=== PATIENT | male | born 1965 | race Caucasian/White ===

== ENCOUNTER 2020-05-04 09:53 | Outpatient (REF) | payer OTHER, SELFPAY | END 2020-05-04 09:54 | disposition home or self-care (01) | LOC: HO.LAB 09:53 | PROVIDERS: Visit Provider Internal Medicine | DX: Z20.822 Contact with and (suspected) exposure to COVID-19 (principal) | CPT/HCPCS: 36415; C9803; U0003; U0005 ==

== ENCOUNTER 2022-10-22 20:15 | Emergency (ER) | payer OTHER, SELFPAY ==
[2022-10-22 20:34] VITALS: BP 146/89; PULSE 75; RESP 18; TEMP 36.7; O2SAT 97; BMI 25.8
--- NOTE | 2022-10-22 20:36 | ED.GENADULT ---
HPI - General Adult General Chief complaint: General Medical Stated complaint: Hemorrhoids? Time Seen by Provider: 10/22/22 22:45 Source: patient Mode of arrival: ambulatory Limitations: no limitations History of Present Illness HPI narrative: Patient history of hemorrhoids for last few days , getting painful taking stool softener no rectal bleed Related Data Previous Rx's Medication Instructions Recorded hydrocortisone 1 %-pramoxine 1 % 1 appl [place] BEDTIME PRN hemorrhoids 10/22/22 rectal foam (Proctofoam HC) #10 grams Allergies Allergy/AdvReac Type Severity Reaction Status Date / Time Penicillins Allergy Rash Verified 10/22/22 20:33 Review of Systems Review of Systems: Yes all other systems are reviewed and are negative [facility] Social History Social History Advance Directives: No Advance Directives Information Provided: Yes Physical Exam ED Vital Signs: Vital Signs - 24 hr 10/22/22 20:34 10/22/22 22:43 Temperature 98.0 F 97.8 F Pulse Rate 75 70 Respiratory Rate 18 19 Blood Pressure 146/89 H 137/95 H Pulse Oximetry 97 97 Oxygen Delivery Method Room Air Room Air BMI result Body Mass Index 25.8 Appearance: Alert. Oriented X3. No acute distress. Eyes: No pallor/icterus ENT: Pharynx normal. Oral Mucosa moist Neck: Normal inspection. Neck supple. CVS: Normal heart rate and rhythm. Pulses normal. Respiratory: No respiratory distress. Equal air entry bilateral, Abdomen: Soft and nontender. Bowel sounds are present, rectal: Small thrombosed hemorrhoid tender to touch Skin: Skin warm and dry. Normal skin color. Normal skin turgor. Course Course Course Narrative: RME - 57 yo Chadian speaking male presents to the ER for evaluation of rectal pain that started today. History of hemorrhoids but none in 2 years. Had 2 normal BMs today but is now having pain, swelling, irritation and itching, no bleeding. On stool softeners and has not been constipated. Plan: Exam in [facility] Medications Administered Discontinued Medications Generic Name Dose Route Start Last Admin Trade Name Freq PRN Reason Stop Dose Admin Lidocaine HCl 2 ml 10/22/22 23:07 10/22/22 23:13 Lidocaine Hcl 1 % Mpf 2 Ml Vial INFILTRATI 10/22/22 23:08 2 ml ONCE ONE Administration Medical Decision Making Medical Decision Making MDM Narrative: 2 cc of 1% lidocaine was used to inject hemorrhoid and Elliptical incision was made on the external hemorrhoids and blood clots were removed patient felt much better pain relieved Discharge Plan Discharge Clinical Impression: External hemorrhoid, thrombosed Patient Disposition: Home, Self-Care Instructions: Hemorrhoids (ED) Additional Instructions: Local care as advised Avoid straining/constipation Use suppository as prescribed Prescriptions: New Proctofoam HC 1-1 % foam 1 appl [place] BEDTIME PRN (Reason: hemorrhoids) Qty: 10 0RF Referrals: Leo Smith MD [Physician] - 2 weeks
[2022-10-22 22:43] VITALS: BP 137/95; PULSE 70; RESP 19; TEMP 36.6; O2SAT 97
[2022-10-22] MEDS: Lidocaine HCl 1 % MPF 2 ML VIAL INFILTRATI (23:13)
== END 2022-10-22 23:49 | disposition home or self-care (01) ==
PROVIDERS: Emergency Provider Internal Medicine; PCP Internal Medicine
DX: K64.4 Residual hemorrhoidal skin tags (principal)
CPT/HCPCS: 46083; 99283; 99284

== ENCOUNTER 2022-11-12 12:57 | Outpatient (AMB) | payer OTHER, SELFPAY ==
[2022-11-12 12:58] VITALS: BP 128/86; PULSE 87; BMI 25.5
--- NOTE | 2022-11-12 12:58 | MHC.OFFVIS ---
Intake Vital Signs 11/12/22 12:58 Height 5 ft 10 in Weight 178 lb BMI 25.5 BP 128/86 Blood Pressure Location Rt brachial Position Sitting Pulse 87 Intake Visit Reasons: hemorrhoids Intake Note: This patient presents for [facility] emergency department follow-up for hemorrhoids. Patient c/o; reports having 2 weeks of rectal draining, denies pain. Head Of Business Development Required: Yes Head Of Business Development Language: Website Designer Name: Christa-SHERIE Information Interpreted: non-clinical & clinical Accompanied by: Self / Same As Patient Allergies Penicillins Allergy (Verified 10/22/22 20:33) Rash Medication List - Last Reconciled 11/12/22 by Leo Smith MD beclomethasone dipropionate 40 mcg/actuation (Qvar RediHaler) 2 inhalations inhalation BID bupropion HCl 150 mg PO QAM desvenlafaxine succinate ER (Pristiq) 0 mg PO ezetimibe 10 mg PO DAILY hydrocortisone-pramoxine 1-1 % (Proctofoam HC) 1 appl [place] BEDTIME PRN ibuprofen 800 mg PO Q8H lidocaine 5% 0 patches topical meloxicam 15 mg PO DAILY mirtazapine 15 mg PO BEDTIME mometasone 0.1% 0 appl topical zolpidem 10 mg PO BEDTIME PRN HPI hemorrhoids HPI Details 57-year-old male referred for hemorrhoids. He says that he noticed a lump outside his anus about 2 weeks ago. He went to the emergency room at that time because this had some pain as well. He was started on Preparation H. He says that the lump has decreased in size significantly since that time. He still has some pain but this has improved as well. He denies any bleeding He denies any constipation. He does state that he had rubber banding for some hemorrhoids about 4 years ago in [place]. [facility] Medical History (Updated 11/12/22 @ 13:32 by Leo Smith MD) History of melanoma Surgical History (Updated 11/12/22 @ 13:09 by SHERIE Saba) History of surgery on arm Family History (Updated 11/12/22 @ 13:10 by SHERIE Saba) Mother Skin cancer Maternal Grandmother Stomach cancer Other Colon cancer Social History Alcohol intake: current Alcohol intake frequency: holidays/special occasions only Patient Tobacco Use Status: Never used Tobacco Review of Systems Const Denies chills and Denies fever(s) Card Denies chest pain, Denies dyspnea and Denies dyspnea on exertion Resp Denies cough, Denies dyspnea and Denies dyspnea on exertion GI Denies hematochezia and Denies change in bowel habits Denies hematuria and Denies difficulty urinating Musc Denies back pain and Denies limited range of motion Neuro Denies focal weakness and Denies convulsions Psych Reports anxiety, Reports depression and Denies mood swings Physical Exam Const General: comfortable and no acute distress Orientation/consciousness: patient oriented x3 Neck Neck: Yes no lymphadenopathy Resp Auscultation: clear to auscultation bilaterally Cardio Rhythm: regular rhythm GI Other: Rectal exam shows a small thrombosed external hemorrhoid, about 5 mm in size on the left. Anoscopy done Palpation (GI): Soft to palpation, nontender and no guarding Neuro General: patient oriented x3 Office Procedures Anoscopy He was in theodore-knife position. The anoscope was gently inserted. A full examination of the entire anal canal was done. He had small internal hemorrhoidal columns mix with some external hemorrhoids. There were no other lesions. There was no fissure. There was no induration or any bleeding. The thrombosed external hemorrhoid on the left was seen. [id number] Assessment & Plan Assessment & Plan (1) External hemorrhoid, thrombosed: Code(s): K64.5 - Perianal venous thrombosis Plan: He feels a lump outside his anus. This is a thrombosed external hemorrhoid. This has decreased in size since onset 2 weeks ago. His pain has improved as well I explained to him that at this time, it does not require any surgical intervention. I did explain to him a ever that if this continues to bother him the line, then he may benefit from hemorrhoidectomy for this external hemorrhoid. He is comfortable with the above explanation. Coding Level of Care Code New Pt Level 3 (11696) Diagnoses External hemorrhoid, thrombosed K64.5 CPT Codes Details - CPT: 73911-Fwafousx ([id number])
== END 2022-11-12 13:32 | disposition home or self-care (01) ==
PROVIDERS: PCP Internal Medicine; Visit Provider Surgery
DX: K64.5 Perianal venous thrombosis (principal)
CPT/HCPCS: 46600; 99203

== ENCOUNTER → 2022-11-12 12:57 | Outpatient (BNVA) | payer OTHER, SELFPAY | PROVIDERS: PCP Internal Medicine; Visit Provider Surgery | DX: K64.5 Perianal venous thrombosis (principal) | CPT/HCPCS: 46600; 99202 ==

== ENCOUNTER 2022-11-19 15:00 | Outpatient (AMB) | payer OTHER, SELFPAY ==
[2022-11-19 15:07] VITALS: BP 133/81; PULSE 69; BMI 25.8
--- NOTE | 2022-11-19 15:07 | MHC.OFFVIS ---
Intake Vital Signs 11/19/22 15:07 Height 5 ft 10 in Weight 180 lb BMI 25.8 BP 133/81 Blood Pressure Location Lt brachial Position Sitting Pulse 69 Intake Visit Reasons: hemorrhoids swelling, discomfort Intake Note: This patient presents for an assessment for hemorrhoids. Patient c/o; describes swelling and discomfort, denies rectal bleeding, describes pain, burning sensation and itchiness. Cement Finisher Required: Yes Cement Finisher Language: Weight Count Operator Name: Arsenio Information Interpreted: non-clinical & clinical Accompanied by: Self / Same As Patient Allergies Penicillins Allergy (Verified 11/19/22 15:09) Rash Medication List - Last Reconciled 11/19/22 by Leo Smith MD beclomethasone dipropionate 40 mcg/actuation (Qvar RediHaler) 2 inhalations inhalation BID bupropion HCl 150 mg PO QAM desvenlafaxine succinate ER (Pristiq) 0 mg PO ezetimibe 10 mg PO DAILY hydrocortisone-pramoxine 1-1 % (Proctofoam HC) 1 appl [place] BEDTIME PRN ibuprofen 800 mg PO Q8H lidocaine 5% 0 patches topical meloxicam 15 mg PO DAILY mirtazapine 15 mg PO BEDTIME mometasone 0.1% 0 appl topical zolpidem 10 mg PO BEDTIME PRN HPI hemorrhoids swelling, discomfort HPI Details I had seen him last week for thrombosed hemorrhoids. He had call this morning to be seen again as he thought that he might have another thrombosed hemorrhoid. He says that he still feels some swelling. He does describe some pain discomfort although this does not seem to be as bad as previously. He is able to sit down comfortably as well. He denies any bleeding. [facility] Medical History History of melanoma Surgical History History of surgery on arm Family History Mother Skin cancer Maternal Grandmother Stomach cancer Other Colon cancer Social History Alcohol intake: current Alcohol intake frequency: holidays/special occasions only Patient Tobacco Use Status: Never used Tobacco Review of Systems Const Denies chills and Denies fever(s) Card Denies chest pain, Denies dyspnea and Denies dyspnea on exertion Resp Denies cough, Denies dyspnea and Denies dyspnea on exertion GI Denies hematochezia and Denies change in bowel habits Denies hematuria and Denies difficulty urinating Musc Denies back pain and Denies limited range of motion Neuro Denies focal weakness and Denies convulsions Psych Denies depression and Denies mood swings Physical Exam Vital Signs: Last Vital Signs Pulse 69 11/19/22 15:07 BP 133/81 11/19/22 15:07 BMI result Body Mass Index 25.8 Const General: comfortable and no acute distress Resp Effort & Inspection: normal respiratory effort Cardio Rate: regular rate GI Other: Rectal exam shows the thrombosed hemorrhoid on the left, nontender, smaller compared to last week, no bleeding, no redness Assessment & Plan Assessment & Plan (1) External hemorrhoid, thrombosed: Code(s): K64.5 - Perianal venous thrombosis Plan: Exam shows that the hemorrhoid is actually smaller than it was last week. I explained to him that we do not need to do any urgent surgical intervention. I told him that it will take several weeks for the thrombosed to be completely resorbed. He is to continue doing warm soaks to the area. I will see him again in the office in a month. He understands the plan well and is comfortable with this. Coding Level of Care Code Est Pt Level 3 (88953) Diagnoses External hemorrhoid, thrombosed K64.5
== END 2022-11-19 15:27 | disposition home or self-care (01) ==
PROVIDERS: PCP Internal Medicine; Visit Provider Surgery
DX: K64.5 Perianal venous thrombosis (principal)
CPT/HCPCS: 99213

== ENCOUNTER → 2022-11-19 15:00 | Outpatient (BNVA) | payer OTHER, SELFPAY | PROVIDERS: PCP Internal Medicine; Visit Provider Surgery | DX: K64.5 Perianal venous thrombosis (principal) | CPT/HCPCS: 99212 ==

== ENCOUNTER 2022-12-10 14:00 | Outpatient (RCR) | payer OTHER, SELFPAY | END 2022-12-24 13:25 | disposition home or self-care (01) | LOC: HO.OT 14:00 | PROVIDERS: PCP Internal Medicine; Visit Provider Internal Medicine Rheumatology | DX: M15.4 Erosive (osteo)arthritis (principal) | CPT/HCPCS: 97035; 97110; 97166 ==

== ENCOUNTER 2023-01-12 13:00 | Outpatient (AMB) | payer OTHER, SELFPAY ==
--- NOTE | 2023-01-12 13:38 | MHC.OFFVIS ---
Intake Vital Signs 01/12/23 13:42 Height 5 ft 10 in Weight 182 lb BMI 26.1 Intake Visit Reasons: hemorrhoids Intake Note: This patient presents for a follow-up assessment for hemorrhoids. Patient c/o; reports improvement. Nursing Executive Required: Yes Nursing Executive Language: Final Inspector Truck Trailer Name: Arsenio Information Interpreted: non-clinical & clinical Accompanied by: Self / Same As Patient Allergies Penicillins Allergy (Verified 01/12/23 13:42) Rash Medication List - Last Reconciled 01/12/23 by Leo Smith MD beclomethasone dipropionate 40 mcg/actuation (Qvar RediHaler) 2 inhalations inhalation BID bupropion HCl 150 mg PO QAM desvenlafaxine succinate ER (Pristiq) 0 mg PO ezetimibe 10 mg PO DAILY hydrocortisone-pramoxine 1-1 % (Proctofoam HC) 1 appl [place] BEDTIME PRN ibuprofen 800 mg PO Q8H lidocaine 5% 0 patches topical meloxicam 15 mg PO DAILY mirtazapine 15 mg PO BEDTIME mometasone 0.1% 0 appl topical zolpidem 10 mg PO BEDTIME PRN HPI hemorrhoids HPI Details He is here for follow-up for his thrombosed hemorrhoid. I had seen him in October, for this. I had instructed him to do warm soaks anti-inflammatories. He says and he now feels much better. Denies any problems with his hemorrhoids anymore. He has good bowel movements. [facility] Medical History (Updated 01/12/23 @ 13:43 by Leo Smith MD) Thrombosed hemorrhoids History of melanoma Surgical History History of surgery on arm Family History Mother Skin cancer Maternal Grandmother Stomach cancer Other Colon cancer Social History Alcohol intake: current Alcohol intake frequency: holidays/special occasions only Patient Tobacco Use Status: Never used Tobacco Review of Systems Const Denies chills and Denies fever(s) Card Denies chest pain, Denies dyspnea and Denies dyspnea on exertion Resp Denies cough, Denies dyspnea and Denies dyspnea on exertion GI Denies hematochezia and Denies change in bowel habits Denies hematuria and Denies difficulty urinating Musc Denies back pain and Denies limited range of motion Neuro Denies focal weakness and Denies convulsions Psych Denies depression and Denies mood swings Physical Exam Const General: comfortable and no acute distress Resp Effort & Inspection: normal respiratory effort Cardio Rate: regular rate GI Other: Rectal exam shows small external hemorrhoids without any thrombosis or any edema, no other lesions Assessment & Plan Assessment & Plan (1) Thrombosed hemorrhoids: Code(s): K64.5 - Perianal venous thrombosis Plan: I had been seeing him for his thrombosed hemorrhoids and this has resolved. Current exam shows small hemorrhoidal columns, external, on the left. He is essentially asymptomatic I did advise him to avoid straining and constipation. If he has recurrent problems with this hemorrhoids on the line, he should come back to the office to be re-evaluated. Coding Level of Care Code Est Pt Level 2 (67805) Diagnoses Thrombosed hemorrhoids K64.5
[2023-01-12 13:42] VITALS: BMI 26.1
== END 2023-01-12 14:06 | disposition home or self-care (01) ==
PROVIDERS: PCP Internal Medicine; Visit Provider Surgery
DX: K64.5 Perianal venous thrombosis (principal)
CPT/HCPCS: 99212

== ENCOUNTER → 2023-01-12 13:00 | Outpatient (BNVA) | payer OTHER, SELFPAY | PROVIDERS: PCP Internal Medicine; Visit Provider Surgery | DX: K64.5 Perianal venous thrombosis (principal) | CPT/HCPCS: 99212 ==

== ENCOUNTER 2023-03-12 14:30 | Outpatient (RCR) | payer OTHER, SELFPAY | END 2023-05-28 13:46 | disposition home or self-care (01) | LOC: HO.OT 14:30 | PROVIDERS: PCP Internal Medicine; Visit Provider Internal Medicine Rheumatology | DX: M15.4 Erosive (osteo)arthritis (principal) | CPT/HCPCS: 97110; 97140; 97165; 97535 ==

== ENCOUNTER 2023-04-23 13:39 | Emergency (ER) | payer OTHER, SELFPAY ==
--- NOTE | ~2023-04-23 | XR_ITS ---
EXAMINATION: XR CHEST CLINICAL INFORMATION: Chest pain and shortness of breath COMPARISON: None available. TECHNIQUE: Frontal view of the chest was obtained. FINDINGS: No significant abnormality is noted involving the heart, lungs, mediastinum, bony thorax or soft tissues. XR/XR chest 1V IMPRESSION: Unremarkable examination.
--- NOTE | 2023-04-23 13:40 | ECG_ITS ---
Test Reason : CP Blood Pressure : / mmHG Vent. Rate : 064 BPM Atrial Rate : 064 BPM P-R Int : 224 ms QRS Dur : 108 ms QT Int : 392 ms P-R-T Axes : 050 -39 004 degrees QTc Int : 404 ms Sinus rhythm with 1st degree A-V block Left axis deviation Pulmonary disease pattern Incomplete right bundle branch block Abnormal ECG No previous ECGs available Referred By: Generic ED Physician Electronically Signed By:CHRISTIANO CASEY
[2023-04-23 14:53] VITALS: BP 175/94; PULSE 52; RESP 18; TEMP 36.6; O2SAT 97; BMI 27.8
--- NOTE | 2023-04-23 14:54 | ED_ITS ---
HPI - Chest Pain General Chief Complaint: General Medical Stated Complaint: chest pain/ SOB Time Seen by Provider: 04/23/23 17:45 Source: patient Mode of arrival: ambulatory Limitations: no limitations History of Present Illness HPI narrative: Patient history of anxiety high cholesterol comes here for pain left side of the chest with shortness since 11am today saturating 97% at room air patient had labs done prior to my evaluation which showed normal troponin normal EKG patient has been anxious because his son just came from [place] after 1 year patient has seen dethistler operator yesterday with no issues started on simvastatin for high cholesterol Related Data Home Medications Medication Instructions Recorded Confirmed beclomethasone dipropionate 40 2 inh inhalation BID 11/12/22 01/12/23 mcg/actuation HFA breath activated aerosol (Qvar RediHaler) bupropion HCl 150 mg tablet,12 hr 150 mg PO QAM 11/12/22 01/12/23 sustained-release desvenlafaxine succinate 50 mg 0 mg PO 11/12/22 01/12/23 tablet,extended release 24 hr (Pristiq) ezetimibe 10 mg tablet 10 mg PO DAILY 11/12/22 01/12/23 ibuprofen 800 mg tablet 800 mg PO Q8H 11/12/22 01/12/23 lidocaine 5 % topical patch 0 patch topical 11/12/22 01/12/23 meloxicam 15 mg tablet 15 mg PO DAILY 11/12/22 01/12/23 mirtazapine 15 mg tablet 15 mg PO BEDTIME 11/12/22 01/12/23 mometasone 0.1 % topical cream 0 appl topical 11/12/22 01/12/23 zolpidem 10 mg tablet 10 mg PO BEDTIME PRN insomnia 11/12/22 01/12/23 Previous Rx's Medication Instructions Recorded hydrocortisone 1 %-pramoxine 1 % 1 appl [place] BEDTIME PRN hemorrhoids 10/22/22 rectal foam (Proctofoam HC) #10 grams Allergies Allergy/AdvReac Type Severity Reaction Status Date / Time Penicillins Allergy Rash Verified 01/12/23 13:42 Review of Systems 2 Review of Systems: Yes all other systems are reviewed and are negative [facility] Past Medical History Medical History (Updated 04/24/23 @ 00:02 by Minor Rojas) Thrombosed hemorrhoids History of melanoma Surgical History History of surgery on arm Family History Family History Mother Skin cancer Maternal Grandmother Stomach cancer Other Colon cancer Social History Social History Alcohol intake: current Alcohol intake frequency: holidays/special occasions only Patient Tobacco Use Status: Never used Tobacco Smoked in Last 30 Days: No Use of substances other than those prescribed or required for medical reasons: No Advance Directives: No Advance Directives Information Provided: No Physical Exam 2 Vital Signs: Vital Signs: Last Vital Signs Temp 98 F 04/23/23 18:04 Pulse 16 L 04/23/23 18:04 Resp 18 04/23/23 14:53 BP 165/91 H 04/23/23 18:04 Pulse Ox 99 04/23/23 18:04 O2 Del Method Room Air 04/23/23 18:04 BMI result Body Mass Index 27.8 Appearance: Alert. Oriented X3. No acute distress. Anxious Eyes: No pallor or icterus ENT: Pharynx normal. Oral Mucosa moist Neck: Normal inspection. Neck supple. CVS: Normal heart rate and rhythm. Pulses normal. Respiratory: No respiratory distress. Equal air entry bilateral, no wheezing/rales/rhonchi Abdomen: Soft and nontender. Bowel sounds are present, Skin: Skin warm and dry. Normal skin color. Normal skin turgor. Extremities: No lower extremity edema. No calf tenderness Neuro: Oriented X 3. No motor deficit. Course Course Course Narrative: RME: Chest pain and shortness of breath since this morning. No cold-like symptoms. Started Simvastatin yesterday evening, prescribed by his PCP. BP in triage: 175/94, no hx HTN Medical Decision Making Medical Decision Making MDM Narrative: Patient with atypical chest pain for more than 6 hours increased anxiety and stress EKG normal troponin negative discharge patient home advised to follow with his PCP patient already seen dethistler operator yesterday Differential Diagnosis Differential Diagnoses: The differential diagnosis associated with the presentation includes ACS/anxiety/atypical chest pain Lab Data [facility] Lab Attestation statement: I reviewed the patient's lab results. 04/23/23 15:41 04/23/23 15:41 Labs: Lab Results 04/23/23 Range/Units 15:41 WBC 6.3 (4.8-10.8) X10*3/uL RBC 4.86 (4.60-5.80) X10*6/uL Hgb 14.8 (14.0-18.0) g/dl Hct 44.3 (42.0-52.0) % MCV 91.2 (80.0-98.0) fL MCH 30.5 (27.0-33.0) pg MCHC 33.4 (31.0-36.0) g/dl RDW 12.8 (11.0-16.0) % Plt Count 307 (160-400) X10*3/uL MPV 9.2 L (9.4-12.4) fL Immature Gran % (Auto) 0.5 H (0.0-0.4) % Neut % (Auto) 53.5 (45-73) % Lymph % (Auto) 31.6 (20-40) % [place] % (Auto) 10.3 (2-11) % Eos % (Auto) 3.0 (0-4) % Baso % (Auto) 1.1 (0-2) % Lymph # (Auto) 2.0 (1.2-4.9) X10*3/uL [place] # (Auto) 0.7 (0.1-1.2) X10*3/uL Eos # (Auto) 0.2 (0.0-0.4) X10*3/uL Baso # (Auto) 0.1 (0.0-0.2) X10*3/uL Abs Immat Gran (auto) 0.03 (0.00-0.03) X10*3/uL Absolute Neuts (auto) 3.4 (2.0-8.3) x10*3/uL Absolute Nucleated RBC 0.000 (0.0-0.012) X10*3/uL Nucleated RBC % (auto) 0.0 (0.0-0.2) /100WBC Sodium 140 (135-145) mmol/L Potassium 4.2 (3.3-5.1) mmol/L Chloride 104 (96-108) mmol/L Carbon Dioxide 28 (22-29) mmol/L Anion Gap 12 (12-20) BUN 20 H (9-16) mg/dL Creatinine 0.85 (0.5-1.4) mg/dL Estim Creat Clear Calc 104.5 Estimated GFR > 60 Random Glucose 103 (60-115) mg/dL Calcium 9.8 (8.4-10.2) mg/dL Total Bilirubin 0.4 (0.0-1.0) mg/dL AST 40 H (5-37) U/L ALT 50 H (0-40) U/L Alkaline Phosphatase 87 (39-117) U/L Troponin I High Sens < 2.7 (<3.5-35.0) ng/L Total Protein 7.9 (6.5-8.0) g/dL Albumin 4.3 (3.5-5.0) g/dL Independent Interpretation I performed an independent interpretation of an: EKG Interpretation: Normal sinus rhythm heart rate 64 beats per minute normal interval normal axis no acute ST T wave changes no acute ischemia Discharge Plan Discharge Clinical Impression: Chest pain Patient Disposition: Home, Self-Care Instructions: Chest Pain (ED) Additional Instructions: Your chest pain unlikely from the heart likely your anxiety causing the discomfort Follow with PCP Continue to take your medications Prescriptions: No Action Proctofoam HC 1-1 % foam 1 appl [place] BEDTIME PRN (Reason: hemorrhoids) Qty: 10 0RF ezetimibe 10 mg tablet 10 mg PO DAILY meloxicam 15 mg tablet 15 mg PO DAILY Qvar RediHaler 40 mcg/actuation HFA aerosol breath activated 2 inh inhalation BID zolpidem 10 mg tablet 10 mg PO BEDTIME PRN (Reason: insomnia) mirtazapine 15 mg tablet 15 mg PO BEDTIME bupropion HCl 150 mg tablet sustained-release 12 hr 150 mg PO QAM lidocaine 5 % adhesive patch,medicated 0 patch topical desvenlafaxine succinate [Pristiq] 50 mg tablet extended release 24 hr 0 mg PO ibuprofen 800 mg tablet 800 mg PO Q8H mometasone 0.1 % cream 0 appl topical Interventions: ED Discharge Assessment Last Done: 04/23/23 18:44 Discharge Date/Time: 04/23/23 18:46
[2023-04-23 15:45] LABS: MANUAL DIFF FLAG NO
[2023-04-23 15:46] LABS: Basophils Absolute Auto 0.1 X10*3/uL (0.0-0.2); Basophils Percent Auto 1.1 % (0-2); Eosinophils Absolute Auto 0.2 X10*3/uL (0.0-0.4); Hematocrit 44.3 % (42.0-52.0); Hemoglobin 14.8 g/dl (14.0-18.0); Imm Gran Abs Auto 0.03 X10*3/uL (0.00-0.03); Imm Gran Pct Auto 0.5 % (0.0-0.4); Lymphocytes Percent Auto 31.6 % (20-40); Mean Corpuscular HGB Conc 33.4 g/dl (31.0-36.0); Mean Corpuscular Hemoglobin 30.5 pg (27.0-33.0); Mean Corpuscular Volume 91.2 fL (80.0-98.0); Mean Platelet Volume 9.2 fL (9.4-12.4); Monocytes Absolute Auto 0.7 X10*3/uL (0.1-1.2); Monocytes Percent Auto 10.3 % (2-11); Neutrophils Absolute Auto 3.4 x10*3/uL (2.0-8.3); Neutrophils Percent Auto 53.5 % (45-73); Platelet Count 307 X10*3/uL (160-400); Red Blood Count 4.86 X10*6/uL (4.60-5.80); Red Cell Distribution Width 12.8 % (11.0-16.0); White Blood Count 6.3 X10*3/uL (4.8-10.8)
[2023-04-23 16:00] LABS: Alanine Aminotransferase 50 U/L (0-40); Albumin Level 4.3 g/dL (3.5-5.0); Alkaline Phosphatase 87 U/L (39-117); Anion Gap 12 (12-20); Aspartate Amino Transferase 40 U/L (5-37); Bilirubin Total 0.4 mg/dL (0.0-1.0); Blood Urea Nitrogen 20 mg/dL (9-16); Calcium 9.8 mg/dL (8.4-10.2); Carbon Dioxide 28 mmol/L (22-29); Chloride 104 mmol/L (96-108); Creatinine Clr Calc Pharmacy 104.5; Estimated Glomerular Filt Rate > 60; Glucose Random 103 mg/dL (60-115); Potassium 4.2 mmol/L (3.3-5.1); Sodium 140 mmol/L (135-145); Total Protein 7.9 g/dL (6.5-8.0)
[2023-04-23 16:12] LABS: Troponin-I High Sensitivity < 2.7 ng/L (<3.5-35.0)
[2023-04-23 18:04] VITALS: BP 165/91; PULSE 16; TEMP 36.6; O2SAT 99
== END 2023-04-23 18:46 | disposition home or self-care (01) ==
PROVIDERS: Nurse Practitioner Family; Emergency Provider Internal Medicine; PCP Internal Medicine
DX: R07.89 Other chest pain (principal); R06.02 Shortness of breath; Z79.899 Other long term (current) drug therapy
CPT/HCPCS: 36415; 71045; 80053; 84484; 85025; 93005; 99283; 99284

== ENCOUNTER → 2023-04-23 13:40 | Outpatient (BNV) | payer OTHER, SELFPAY | PROVIDERS: Emergency Provider Internal Medicine; PCP Internal Medicine; Visit Provider Internal Medicine | DX: R94.31 Abnormal electrocardiogram [ECG] [EKG] (principal) | CPT/HCPCS: 93010 ==

== ENCOUNTER 2024-04-15 09:02 | Outpatient (RCR) | payer OTHER, SELFPAY ==
--- NOTE | 2024-03-18 13:52 | MHC.OT.EP ---
[address] [phone] Occupational Therapy Plan of Care Patient Name: Quincy Camp Date of Evaluation: 03/18/24 Diagnosis: L elbow pain Pain Location: Lateral elbow Pain Score: 9 Pain Scale Used: Numeric (0 - 10) Aggravating Factors: weight bearing ; twisting; heavy lifting Alleviating Factors: Tylenol ; and Meloxicam for OA Assessment: Pt is a 58 yr old R hand dominant male who reports pain for over a mos. in his L elbow. He reports he has been [facility], and realizes that OA is contributing to his pain. He also has head several cancerous skin cells removed from his FA over the past 2 yrs. He reports the pain is localized to the lateral elbow and reports increased pain w/ palpation to this area. Pt also presents w/ decreased gmat tutor strength and pain w/ elbow ext/flex and supination. He would benefit from skilled OT therapy to increase pain free elbow ROM, strength, and functional use of his L UE. Frequency and Duration: The patient will be seen 2xs aweek for 6 weeks Short Term Goals: Pt will be complaint w/ joint modifications to reduce elbow (L) pain Pt will be complaint w/ his HEP Pt will report 6/10 pain in L elbow w/ activity Fdc Goals: Pt will gain 10 lbs of L Grasp (30 lbs) Pt will have full pain free ROM (ext/flex) Pt will report 2/10 pain post activity/ active use of his L UE Treatment Plan: Therapeutic Exercise Therapeutic Activity Home Exercise Program Splinting Neuro Re-ed Patient Education Desensitization/Sensory Re-ed Edema Control ADL Training Ultrasound NMES Iontophoresis Paraffin Fluidotherapy MHP Cold Packs Joint Mobilization Soft Tissue Mobilization Kinesiotaping Other (see comments) Electronically Signed By: Ida Bartlett OTR/L Please Sign and return to therapist. Thank you once again for your referral.
== END 2024-07-12 10:52 | disposition home or self-care (01) ==
LOC: HO.OT 09:02
PROVIDERS: PCP Internal Medicine; Visit Provider Internal Medicine Rheumatology
DX: M77.12 Lateral epicondylitis, left elbow (principal); M77.02 Medial epicondylitis, left elbow
CPT/HCPCS: 97110; 97140; 97166; 97535